=== PATIENT | female | born 1985 | race Caucasian/White ===

== ENCOUNTER → 2018-12-13 | Outpatient (CLI) | payer OTHER | LOC: SUN.DIA 08:43 | DX: O24.419 Gestational diabetes mellitus in pregnancy, unspecified control (principal); Z3A.31 31 weeks gestation of pregnancy | CPT/HCPCS: G0108 ==

== ENCOUNTER → 2018-12-28 | Outpatient (CLI) | payer OTHER | LOC: SUN.DIA 10:00 | DX: O24.419 Gestational diabetes mellitus in pregnancy, unspecified control (principal); Z3A.36 36 weeks gestation of pregnancy | CPT/HCPCS: G0108 ==

== ENCOUNTER 2019-01-28 11:10 | Inpatient (IN) | payer OTHER ==
[~2019-01-28] VITALS: Ht 167.6 cm; Wt 79.1 kg
[2019-01-28] VITALS (50 sets, daily range): BP systolic 102–130; BP diastolic 59–86; PULSE 56–87; TEMP 97.9–99.1
--- NOTE | 2019-01-28 11:15 | NUR ---
Patient arrives ambulatory with spouse reporting SROM at 0700. Patient reports occasional cramping. Denies vaginal bleeding and repors normal movement. Patient changes into gown, EFM explained and placed. VSS. Patient updated on plan of care. 1125- Amniotrace positive. Moderate amount of clear fluid noted upon exam. SVE closed/70/-3. Patient repositioned WL then requesting to use restroom. 1130- Patient back on EFM. FHR deceleration noted following being placed back on EFM intermittently to 70 bpm lasting 1.5 minutes. Patient repositioned LL then RL. FHR recovers to 165 bpm. 1145- See physician notification. 1150- Patient checks BG- 75. 1200- IV started in LFA, labs obtained and sent. LR infusing per protocol. Consents explained and signed. Patient denies questions.
[2019-01-28] MEDS ORDERED: PRENATAL (11:40)
[2019-01-28] MEDS ORDERED: COLACE 100100 MG/CAP PO (11:41)
[2019-01-28] MEDS ORDERED: VALTREX1 GM PO (11:41)
[2019-01-28] MEDS ORDERED: PROTONIX20 MG PO (11:42)
[2019-01-28] MEDS ORDERED: MAGNESIUM200 MG PO (11:42)
--- NOTE | 2019-01-28 12:23 | NUR ---
1223- Tetanic contraction noted lasting approximately five minutes. Prolonged FHR deceleration noted lasting four minutes intermittently to 70 bpm. Patient repositioned LL, RL, then LL. SVE by Ramana Glasgow RN unchanged. Patient repositioned to knee chest, then RL. Dr. Mazariegos notified at 1226 requesting to come evaluate patient. Oxygen via simple mask at 10L, LR bolus infusing. FHR recovers to 150 baseline. Patient remains in RL position with oxygen via mask. Physician in transit.
[2019-01-28 12:24] LABS: BASO % 0.4 % (0.0-2.0); EOS # 0.1 (0.0-0.7); EOS % 0.6 % (0-4.0); GRAN # 8.4 (1.4-6.5); HEMATOCRIT 38.5 % (37.0-47.0); HEMOGLOBIN 13.5 g/dl (12.5-16.0); LYMPH % 17.9 % (20.0-51.0); MEAN CELL VOLUME 96 fl (80.0-100.0); MEAN CORPUSCULAR HEMOGLOBIN 34 pg (27.0-31.0); MEAN CORPUSCULAR HGB CONC 35 g/dl (33.0-37.0); MEAN PLATELET VOLUME 10.2 fl (7.4-10.4); MONO # 0.6 (0.1-0.6); MONO % 5.6 % (1.7-9.3); PLATELET COUNT 270 K/mm3 (130-400); RED BLOOD COUNT 4.02 M/mm3 (4.10-5.30); REDCELL DISTRIBUTION WIDTH-CV 12.5 % (11.5-14.5)
--- NOTE | 2019-01-28 12:45 | NUR ---
Dr. Mazariegos on unit, reviews FHR strip since admission.
--- NOTE | 2019-01-28 12:50 | NUR ---
Dr. Mazariegos at bedside to discuss plan of care. Reviewed FHR strip and interventions. Plan of care to monitor patient until 1330 and if FHR strip meets criteria at that time begin Pitocin augmentation. Patient and deny questions, agree to plan of care. 1300- Patient assisted to birthing ball per request. Physician remains on unit.
--- NOTE | 2019-01-28 14:37 | NUR ---
Prolonged FHR deceleration noted lasting approximately five minutes intermittently to 70 bpm. Patient back to bed and repositioned LL. Dr. Mazariegos at bedside. SVE /-2 per physician. Patient repositioned RL then to knee chest. Pitocin discontinued, Oxygen via simple mask at 10L. Patient back to RL and FSE placed by physician at 1442. FHR recovers at 1443 and patient updated on plan of care. 1455- Patient requesting brittany. Sheryl Diane CNC MECHANIC notified. LR bolus infusing.
--- NOTE | 2019-01-28 15:18 | NUR ---
1518- Sheryl Diane BENEFITS PROCESSOR at bedside for epidural placement. Patient assisted to sit on edge of bed. 1525- Single shot via epidural by Sheryl Diane CRNA. Patient tolerates well, no adverse reactions noted. See anesthesia record. 1530- Patient repositioned WL following epidural. Safety and plan of care reviewed.
--- NOTE | 2019-01-28 15:50 | NUR ---
Dr. Mazariegos remains on unit. Orders to restart Pitocin at 2 mU and increase every 15 minutes. Pitocin restarted at 2 mU.
--- NOTE | 2019-01-28 17:05 | NUR ---
1705- Recurrent late decelerations noted with contractions. Patient repositioned RL, SVE unchanged. Patient repositioned RL, Pitocin discontinued and O2 applied at 10L via mask. Patient repositioned LL. 1707- Dr. Mazariegos notified and requested at bedside. Physician in transit. Patient prepped for possible delivery. 1712- Dr. Mazariegos at bedside. Decision for section. 1721- Patient off EFM and transferred to OR. See intraoprtaive report.
--- NOTE | 2019-01-28 18:20 | NUR ---
182- Patient in process of being transferred to bed in OR for transfer to PACU. Patient reports feeling nauseated. 1821- Tonic clonic seizure noted lasting approximately 45 seconds. Patient repositioned LL and head protected. CAT Team called, Dr. Mazariegos at bedside. See anesthesia record for medication. Blood glucose obtained-91. 1824- Patient responsive but sedated. See anesthesia and PACU record. Physician remains at bedside. 1839- Patient to PACU. Report to Adonis Gore RN.
--- NOTE | 2019-01-28 18:40 | NUR ---
PT TO PACU VIA BED APPROXIMATELY 15 MINUTES FOLLOWING SEIZURE IN OR. PT REMAINS DROWZY BUT VS STABLE. O2 PER NC AT 3L. BLEEDING WNL, BINDER ON.
[2019-01-28 18:58] LABS: BASO # 0.1 (0.0-0.2); BASO % 0.4 % (0.0-2.0); EOS % 0.1 % (0-4.0); GRAN # 11.3 (1.4-6.5); HEMATOCRIT 37.4 % (37.0-47.0); LYMPH # 3.5 (1.2-3.4); LYMPH % 22.3 % (20.0-51.0); MEAN CELL VOLUME 99 fl (80.0-100.0); MEAN CORPUSCULAR HEMOGLOBIN 34 pg (27.0-31.0); MEAN CORPUSCULAR HGB CONC 35 g/dl (33.0-37.0); MEAN PLATELET VOLUME 10.3 fl (7.4-10.4); MONO # 0.9 (0.1-0.6); MONO % 5.4 % (1.7-9.3); PLATELET COUNT 273 K/mm3 (130-400); RED BLOOD COUNT 3.78 M/mm3 (4.10-5.30); REDCELL DISTRIBUTION WIDTH-CV 12.6 % (11.5-14.5)
[2019-01-28 19:09] LABS: ALBUMIN 3.1 gm/dL (3.5-5.0); BILIRUBIN,TOTAL 0.9 mg/dL (0.0-1.0); CALCIUM 8.6 mg/dL (8.4-10.2); CREATININE, serum 0.82 (0.52-1.25); POTASSIUM 3.2 mmol/L (3.4-5.0); TOTAL PROTEIN 6.1 gm/dL (6.4-8.2)
--- NOTE | 2019-01-28 19:15 | NUR ---
PT TO VIA BED, TOLERATED TRANSFER WELL.
--- NOTE | 2019-01-28 20:30 | NUR ---
1920- O2 ON AT 2L PER NC, O2 SATS IN RANGE 98%-100%. 2030- PT A&O, ASKS FOR O2 TO BE REMOVED AT THIS TIME. O2 SATS REMAIN STABLE AT 98% ON ROOM AIR.
[2019-01-29 00:15] VITALS: BP 117/65; PULSE 62
[2019-01-29 03:00] VITALS: BP 111/71; PULSE 56; TEMP 98.5
[2019-01-29 07:48] VITALS: BP 99/68; PULSE 76; TEMP 98.1
--- NOTE | 2019-01-29 10:44 | NUR ---
Initial visit; Parents thanked Endodontic Assistant for offering congratulations and God's blessings for the of their son. Endodontic Assistant thanked family for choosing [facility].
[2019-01-29 15:58] VITALS: BP 116/72; PULSE 76; TEMP 97.8
--- NOTE | 2019-01-29 16:15 | NUR ---
1600 DR DIAZ OFFICE CALLED AT THIS TIME TO REMIND OF CONSULT ON PATIENT
[2019-01-29 21:20] VITALS: BP 117/68; PULSE 68; TEMP 99.3
[2019-01-30 08:30] VITALS: BP 103/62; PULSE 59; TEMP 97.4
[2019-01-30] MEDS ORDERED: IBU800 M1 PO (12:41)
[2019-01-30] MEDS ORDERED: PERCOCET 325 MG1 TA2 PO (12:41)
[2019-01-30 15:55] VITALS: BP 107/62; PULSE 76; TEMP 98.3
[2019-01-30 22:20] VITALS: BP 100/60; PULSE 63; TEMP 98.6
[2019-01-31 07:53] VITALS: BP 124/68; PULSE 82; TEMP 98.1
--- NOTE | 2019-01-31 13:11 | NUR ---
13[address] DR [address] AND DR DIAZ AT BEDSIDE TO EVALUATE, AND DISCHARGE INSTRUCTIONS GIVEN PER AND NURSE WITH VERBAL UNDERSTANDING NOTED. FOLLOW UP WITH DR DIAZ IN 2 WEEKS. PATIENT TO CALL AND SCHEDULE THAT.
== END 2019-01-31 15:35 | disposition home or self-care (01) | DRG 787 ==
LOC: LDRO 11:10 → OB 11:50 → LDR 11:50 → OB 01-29 01:08
PROVIDERS: Student in an Organized Health Care Education/Training Program; ADMIT Obstetrics & Gynecology
PROC: 10D00Z1 Extraction of Products of Conception, Low, Open Approach (ICD-10-PCS; principal; 2019-01-28)
DX: O76 Abnormality in fetal heart rate and rhythm complicating labor and delivery (principal); D47.Z2 Castleman disease; O98.32 Other infections with a predominantly sexual mode of transmission complicating childbirth; O24.420 Gestational diabetes mellitus in childbirth, diet controlled; Z3A.37 37 weeks gestation of pregnancy; Z37.0 Single live birth; O26.893 Other specified pregnancy related conditions, third trimester; Z67.41 Type O blood, Rh negative; R56.9 Unspecified convulsions; O75.89 Other specified complications of labor and delivery; O69.9XX0 Labor and delivery complicated by cord complication, unspecified, not applicable or unspecified
CPT/HCPCS: A9585; J0690; J1885; J2175; J2250; J2370; J2405; J2590; J2791; J2795; J3010; J7120; Q9967

== ENCOUNTER → 2019-02-20 | Outpatient (CLI) | payer OTHER ==
[~2019-02-20] MED LIST: COLACE 100100 MG/CAP PO; IBU800 M1 PO; MAGNESIUM200 MG PO; PERCOCET 325 MG1 TA2 PO; PRENATAL; PROTONIX20 MG PO; VALTREX1 GM PO
--- NOTE | 2019-02-20 12:41 | NUR ---
Pt, Beba Andrea, into the clinic with 3 week old Bertram ( [birth year]) for assistance with weaning Bertram from the breast shield. Adrienne's weight was 7 # 3.3 oz ( 3270g). was initially complicated by mother's illness after delivery and infants need for supplementation and a difficult latch which eventually led to the use of a breastshield, which Beba would like to be able to stop using. Adrienne's prefeed weight today was 8 # 5 oz (3770 g). LC assisted Beba with obtaining a latch without using a shield and offered suggestions on how to obtain such latch without assitance. Beba and Bertram were able to maintain appropriate latch and Bertram nursed for approx 10 min on each breast with a total weight gain of 2.7 oz (76 g). POC: Continue to feed ad shakira without the use of the shied using techniques discussed. If latch proves difficult, start BF session with shield and remove partly through nursing session. Return to clinic with further issues. Understanding verbalized.
== END ==
LOC: LAC 11:09
DX: Z39.1 Encounter for care and examination of lactating mother (principal); Z71.89 Other specified counseling

== ENCOUNTER → 2019-03-05 | Outpatient (CLI) | payer OTHER ==
--- NOTE | 2019-03-05 15:14 | NUR ---
Pt, Beba Andrea, presents for outpatient consult with 5 week old baby boy, Bertram Andrea. She is concerned about ongoing latch pain after weaning from the nipple shield. Bertram was born by c/section on [birth year] and weighed 7#3.3oz (3270 gms). He was seen at walk-in clinic on 02/20/19 with assistance to wean from the nipple shield. He weighed 8# 5oz at that time. Today Bertram weighs 9#3.6oz (4186 gms). With latching Bertram doesn't always open his mouth widely. Pt instructed on how she could roll his chin and bottom lip down once he was latched. She states this feels better. She was also instructed on how to catch the chin to keep the jaw open with the latch, again, it is more comfortable. She was also instructed on the "laid back" position on the second side to help keep him over the breast, therefore keeping him closer and her more comfortable being able to cradle hold him. After nursing Bertram had a gain of 3.7oz. POC: Breastfeed ad shakira, monitoring mouth opening, adjusting jaw angle once latched, keeping him close and using holds as described above. F/U: Ad shakria. Questions invited and answered.
== END ==
LOC: LAC 14:52
DX: Z39.1 Encounter for care and examination of lactating mother (principal); Z71.89 Other specified counseling

== ENCOUNTER 2020-11-05 00:51 | Inpatient (IN) | payer OTHER ==
[~2020-11-05] VITALS: Ht 167.6 cm; Wt 83.2 kg
[2020-11-05] VITALS (20 sets, daily range): BP systolic 100–122; BP diastolic 49–79; PULSE 61–113; TEMP 97.7–99.5
--- NOTE | 2020-11-05 00:55 | NUR ---
0055- PT PRESENTS TO LDR COMPLAINING OF LEAKING AMNIOTIC FLUID, AMBULATORY TO ROOM LR3, CHANGED INTO GOWN. 0100- EFM X2 APPLIED. PT REPORTS LEAKING CLEAR FLUID, STATES SHE IS HAVING SOME CONTRACTIONS, IS FEELING BABY MOVE, DENIES VAGINAL BLEEDING. PLAN OF CARE FOR LABOR CHECK DISCUSSED AND QUESTIONS ANSWERED. 0105- AMNITRACE POSITIVE FOR RUPTURE OF MEMBRANES, POOLING OF FLUID NOTED. SVE BY THIS NURSE 0-11/19/3 WITH LOTS OF CLEAR FLUID NOTED. PLAN OF CARE DISCUSSED WITH PT.
[2020-11-05] MEDS ORDERED: UNISOM25 MG PO (01:19)
[2020-11-05 01:59] LABS: BASO % 0.3 % (0.0-2.0); EOS # 0.1 (0.0-0.7); EOS % 0.5 % (0-4.0); GRAN # 7.9 (1.4-6.5); GRAN % 70.2 % (42.2-75.2); HEMOGLOBIN 11.7 g/dl (12.5-16.0); LYMPH # 2.6 (1.2-3.4); LYMPH % 23.2 % (20.0-51.0); MEAN CELL VOLUME 91 fl (80.0-100.0); MEAN CORPUSCULAR HEMOGLOBIN 31 pg (27.0-31.0); MEAN CORPUSCULAR HGB CONC 34 g/dl (33.0-37.0); MONO # 0.6 (0.1-0.6); MONO % 5.2 % (1.7-9.3); PLATELET COUNT 288 K/mm3 (130-400); RED BLOOD COUNT 3.75 M/mm3 (4.10-5.30); REDCELL DISTRIBUTION WIDTH-CV 12.5 % (11.5-14.5)
--- NOTE | 2020-11-05 09:06 | NUR ---
Initial visit; Parents thanked [employer] Custodian for offering congratulations and God's blessings for the of their daughter. [employer] Custodian thanked family for choosing [facility].
[2020-11-05] MEDS ORDERED: PERCOCET 325 MG1 TA2 PO (09:51)
[2020-11-05] MEDS ORDERED: IBU800 M1 PO (09:51)
[2020-11-06 01:35] VITALS: BP 129/73; PULSE 75; TEMP 98.2
[2020-11-06 07:35] VITALS: BP 119/71; PULSE 67; TEMP 97.8
[2020-11-06 17:05] VITALS: BP 121/75; PULSE 71; TEMP 98
[2020-11-06 21:10] VITALS: BP 114/67; PULSE 71; TEMP 98.7
[2020-11-07 09:15] VITALS: BP 121/72; PULSE 72; TEMP 98.1
--- NOTE | 2020-11-07 10:39 | NUR ---
Follow-up visit; Family thanked [employer] Incident Responder for looking in on them and wishing them well.
== END 2020-11-07 14:45 | disposition home or self-care (01) | DRG 787 ==
LOC: LDRO 00:51 → OB 01:33 → LDR 01:33 → OB 04:29
PROVIDERS: Obstetrics & Gynecology; ADMIT Student in an Organized Health Care Education/Training Program
PROC: 10D00Z1 Extraction of Products of Conception, Low, Open Approach (ICD-10-PCS; principal; 2020-11-05)
DX: O34.211 Maternal care for low transverse scar from previous cesarean delivery (principal); O98.52 Other viral diseases complicating childbirth; D47.Z2 Castleman disease; Z3A.38 38 weeks gestation of pregnancy; Z37.0 Single live birth; B00.9 Herpesviral infection, unspecified; O99.892 Other specified diseases and conditions complicating childbirth; G40.909 Epilepsy, unspecified, not intractable, without status epilepticus; O26.893 Other specified pregnancy related conditions, third trimester; Z67.41 Type O blood, Rh negative
CPT/HCPCS: J0690; J1885; J2175; J2370; J2405; J2590; J3010; J7120